=== PATIENT | male | born 1955 | race Caucasian/White ===

== ENCOUNTER 2024-05-30 06:11 | Outpatient (REF) | payer OTHER, SELFPAY ==
--- NOTE | ~2024-05-30 | US_ITS ---
EXAMINATION: US RETROPERITONEAL LIMITED (AORTA) CLINICAL INFORMATION: Screening for AAA. History of smoking. COMPARISON: None available. TECHNIQUE: Manrique-scale, color Doppler and spectral Doppler evaluation of the abdominal aorta. FINDINGS: The aorta is normal. The measurements of the aorta in maximum AP and transverse dimensions respectively are as follows: Proximal: 2.8 x 1.9 cm. Mid: 2.1 x 1.8 cm. Distal: 1.7 x 1.3 cm. The measurements of the common iliac arteries in maximum AP dimension are as follows: Right Common Iliac Artery: 1.4 cm. Left Common Iliac Artery: 1.4 cm. US/US abdominal aortic aneurysm IMPRESSION: No abdominal aortic or iliac artery aneurysm.
== END 2024-05-30 06:12 | disposition home or self-care (01) ==
LOC: HO.UMASIMG 06:11
PROVIDERS: Visit Provider Student in an Organized Health Care Education/Training Program
DX: Z13.6 Encounter for screening for cardiovascular disorders (principal); K58.9 Irritable bowel syndrome, unspecified
CPT/HCPCS: 76706